=== PATIENT | male | born 1980 ===

== ENCOUNTER 2017-10-30 16:55 | Emergency (ER) | payer OTHER ==
[2017-10-30 17:04] VITALS: RESP 16
[2017-10-30] MEDS ORDERED: PROPARACAINE 0.5% 15 ML OPHT DROP OP ONE (17:24)
[2017-10-30] MEDS ORDERED: PROPARACAINE 0.5% 15 ML OPHT DROP ONE (17:24)
[2017-10-30] MEDS ORDERED: FLUORESCEIN SODIUM 1 MG STRIP OP ONE ×2 (17:24→17:32)
--- NOTE | 2017-10-30 17:30 | EDPHY ---
H & P Time Seen by Provider: 10/30/17 17:21 HPI/ROS: CHIEF COMPLAINT: Eye trauma HISTORY OF PRESENT ILLNESS: Patient was hammering and a piece of metal flew off , possibly from a nail, and hit his left eye at around 5:00 p.m.. Presents with a feeling of liquid around the side of his visual field. REVIEW OF SYSTEMS: No headache no loss of consciousness PAST MEDICAL HISTORY: Negative General Appearance: Alert, no distress. Visual acuity: noted from nursing notes. 20/30 each eye. Lids and Lashes: No edema, no stye, no erythema. Conjunctivae: Not injected, no exudate. Sclera: Patient has some conjunctival bruising under the upper left eyelid. Pupils: Left pupil is teardrop shaped with the point at the superior surface. Corneas: Left examined with fluoroscein, no uptake seen with slitlamp. No foreign body on surface of cornea. Anterior chamber: Not well seen External: No proptosis, no periorbital swelling or redness or tenderness. Emergency Department course/MDM: Consultation with Ophthalmology. Irregular pupil suspicion for globe rupture. 1734: Discussed with Vasile Knutson, will see patient in ED. 1804: Dr. Knutson saw patient in ED, recommends he be transferred for definitive care; called [facility] transfer line. Per Dr. Knutson he cannot care for the patient at [facility]; he is not able to do the required procedure here. 1806: Reason for transfer for ophthalmological surgical services not available at [facility] right now discussed the patient and consented. Patient offered ambulance transport which was recommended by myself, but he refused and will get a ride with a friend directly to [facility]. Accepting physician is Dr. Borrego for opthalmology, and from the emergency department Dr. Marley. Warned to go directly to the accepting hospital, threat to vision in the left eye if delay. Smoking Status: Current every day smoker Constitutional: Initial Vital Signs Temperature (C) 37 C 10/30/17 17:01 Heart Rate 89 10/30/17 17:01 Respiratory Rate 16 10/30/17 17:01 Blood Pressure 126/79 H 10/30/17 17:01 O2 Sat (%) 97 10/30/17 17:01 O2 Delivery Mode Room Air Allergies/Adverse Reactions: No Known Allergies Allergy (Unverified 10/30/17 17:01) Home Medications: Medication Instructions Recorded NK [No Known Home Meds] 10/30/17 MDM/Departure - MDM Medications Given: Discontinued Medications Fluorescein Sodium (Dyzdu-P-Mcvox) 1 mg OP EDNOW ONE Stop: 10/30/17 17:33 Last Admin: 10/30/17 17:37 Dose: 1 mg Proparacaine HCl (Alcaine 0.5%) 1 drops OP EDNOW ONE Stop: 10/30/17 17:25 Last Admin: 10/30/17 17:37 Dose: 1 drop - Depart Disposition: [facility] Clinical Impression: Eye trauma Ruptured globe of left eye Qualifiers: Encounter type: initial encounter Qualified Code(s): S05.32XA - Ocular laceration without prolapse or loss of intraocular tissue, left eye, initial encounter Condition: Good Additional Instructions: Go directly to [facility] emergency room now. Do not stop on the way, do not eat or drink anything. Keep the eye shield in place. You are to see Dr. Borrego from opthalmology. Referrals: Vasile Knutson MD [Medical Doctor] - As per Instructions
[2017-10-30 19:04] VITALS: BP 143/94; PULSE 86; TEMP 98.2; O2SAT 93
== END 2017-10-30 19:04 | disposition short-term general hospital (02) ==
DX: S05.32XA Ocular laceration without prolapse or loss of intraocular tissue, left eye, initial encounter (principal); F17.200 Nicotine dependence, unspecified, uncomplicated; W22.8XXA Striking against or struck by other objects, initial encounter